=== PATIENT | male | born 1995 | race Caucasian/White ===

== ENCOUNTER 2016-11-28 19:03 | Emergency (ER) | payer OTHER ==
[~2016-11-28] VITALS: Ht 172.7 cm; Wt 66.7 kg
--- NOTE | ~2016-11-28 | EKG ---
PATIENT: DOMINGUEZ MONTEIRO UNIT #: [id number] Ventricular Rate: 91 BPM Atrial Rate: 91 BPM P-R Interval: 154 ms QRS Duration: 108 ms Q-T Interval: 376 ms QTC Calculation(Bezet): 462 ms P Winside: 51 degrees Calculated R Winside: 100 degrees Calculated T Winside: 53 degrees Diagnosis Line: Normal sinus rhythm Diagnosis Line: Rightward axis Diagnosis Line: Borderline ECG Diagnosis Line: No previous ECGs available Diagnosis Line: Confirmed by GILDARDO PATEL MD ([id number]) on Diagnosis Line: 11/29/2016 10:53:42 AM INTERPRETING MD: JORGE ARCHER
--- NOTE | ~2016-11-28 | CR72 ---
[facility] A Service of [facility] & [facility] RADIOLOGY TEXT RESULTS PATIENT: DOMINGUEZ MONTEIRO LOCATION: [facility] : [birth year] UNIT #: [id number] AGE: [address]: Mj Lancaster MD SEX: M ORDER DR: [id number] [facility] [address] [place] [address]. [place], [place] [address] [id number] MR#: [id number] #: [id number] NAME: DOMINGUEZ MONTEIRO : 1995 SEX: M STUDY DATE/TIME: 11/28/2016 20:18 UNIT: [facility] ROOM: STUDY DESCRIPTION: CR Chest Single View Portable Attending Physician: Mj Lancaster M.D. Ordering Physician: Mj Lancaster M.D. Primary Care Physician: No Primary Care Physician MEDICAL IMAGING REPORT This report is preliminary unless electronic signature is present EXAM Chest x-ray single-view portable. HISTORY Chest pain, headache and fever started on 11/28/2016. Patient is a smoker. TECHNIQUE Single frontal portable view of the chest timed 20:18 11/28/2016 reviewed. COMPARISON No prior. FINDINGS Heart size is normal. There is no acute-appearing parenchymal infiltrate, acute congestive failure, pleural effusion or pneumothorax. IMPRESSION No active disease. Dictated by... Lorena Mendoza M.D. THIS IS AN ELECTRONICALLY VERIFIED REPORT Lorena Mendoza M.D. at 11/29/2016 11:16 AM SAC/katy TD: 11/29/2016 08:31 JOB #: [id number] MEDICAL IMAGING REPORT Page 1 of 1 COPY
[2016-11-28 19:56] LABS: BASOPHIL% 0.3 % (0-2.5); EOSINOPHIL% 0.3 % (0.0-7.0); HEMATOCRIT 43.8 % (38.0-50.0); HEMOGLOBIN 14.8 gm/dL (13.0-16.0); LYMPHOCYTE# 0.6 X10e3 (1.0-3.5); MEAN CELL VOLUME 84.9 FL (83-96); MEAN CORPUSCULAR HEMOGLOBIN 28.7 PG (28-34); MEAN CORPUSCULAR HGB CONC 33.7 g/dL (30-36); MEAN PLATELET VOLUME 8.2 FL (6.5-11.5); MONOCYTE# 0.4 X10e3 (0-1.0); MONOCYTE% 6.2 % (3.0-12.0); NEUTROPHIL# 6.1 X10e3 (1.5-7.1); NEUTROPHIL% 85.2 % (40-75); PLATELET COUNT 135 X10e3 (140-420); RED BLOOD COUNT 5.16 X10e (3.90-5.60); RED CELL DISTRIBUTION WIDTH 13.6 % (11.0-15.5); WHITE BLOOD COUNT 7.1 X10e3 (4.0-10.5)
[2016-11-28 20:04] LABS: DIFF IND NO
[2016-11-28 20:07] LABS: POC - CKMB <1.0 ng/mL (0.0-7.9); POC - TROPONIN <0.05 ng/mL (<=0.05)
[2016-11-28 20:27] LABS: CALCIUM SERUM 8.6 mg/dL (8.4-10.2); GLOM FILT RATE Estimated 105.6 mL/min (>60); POTASSIUM 3.3 mmol/L (3.5-5.1)
== END 2016-11-28 21:30 | disposition home or self-care (01) ==
LOC: CED 19:03
PROVIDERS: Emergency Medicine
DX: B34.9 Viral infection, unspecified (principal)
CPT/HCPCS: 36415; 71010; 80048; 82553; 83880; 84484; 85025; 93005; 96361; 96374; 99285; J1885